=== PATIENT | female | born 1990 | race Caucasian/White ===

== ENCOUNTER 2017-08-15 06:03 | Day surgery (SDC) | payer BC ==
[~2017-08-15 06:03] MED LIST: CEFAZOLIN 2 GM/50 ML (PMX) 50 ML IVPB; LACTATED RINGER'S 1,000 ML IV*
[2017-08-15] MEDS ORDERED: NALOXONE (0.4 MG/ML) INJ IV (06:30)
[2017-08-15] MEDS ORDERED: LIDOCAINE 2% (SDV) 5 ML INJ (06:53)
[2017-08-15] MEDS ORDERED: GLYCOPYRROLATE 1 MG INJ (06:53)
[2017-08-15] MEDS ORDERED: MIDAZOLAM 1 MG/ML 2 ML INJ ×2 (06:53→09:18)
[2017-08-15] MEDS ORDERED: FENTAnyl 50 MCG/ML VIAL (06:53)
[2017-08-15] MEDS ORDERED: NEOSTIGMINE 3 MG/3 ML SYRINGE (06:53)
[2017-08-15] MEDS ORDERED: PROPOFOL 20 ML (06:53)
[2017-08-15] MEDS ORDERED: DEXAMETHASONE 4 MG/ML 1 ML INJ (06:53)
[2017-08-15] MEDS ORDERED: ROCURONIUM 50 MG INJ (06:53)
[2017-08-15] MEDS ORDERED: ONDANSETRON 4 MG INJ ×2 (06:54→09:17)
[2017-08-15] MEDS ORDERED: CEFAZOLIN 1 GM INJ (07:00)
[2017-08-15] MEDS: POLYMYXIN/BACITRACIN 1L IRRIG (08:39)
[2017-08-15] MEDS ORDERED: MEPERIDINE 25 MG INJ (09:29)
[2017-08-15] MEDS ORDERED: KETOROLAC 30 MG INJ (09:29)
[2017-08-15] MEDS ORDERED: ALBUTEROL 0.083% (NEB) 2.5 MG/3 ML AMP HHN (09:30)
[2017-08-15] MEDS ORDERED: DIPHENHYDRAMINE 50 MG INJ IV (09:30)
[2017-08-15] MEDS ORDERED: hydrALAzine 20 MG INJ IV (09:30)
[2017-08-15] MEDS ORDERED: OXYCODONE/ACETAMINOPHEN (5/325) TAB PO (09:30)
[2017-08-15] MEDS ORDERED: HYDROmorphONE 1 MG/5 ML IV SYRINGE IV ×3 (09:30)
[2017-08-15] MEDS ORDERED: METOCLOPRAMIDE 10 MG INJ IV (09:30)
[2017-08-15] MEDS ORDERED: FENTAnyl 50 MCG/ML VIAL IV ×2 (09:30)
[2017-08-15] MEDS: MIDAZOLAM 1 MG/ML 2 ML INJ IV (09:41)
[2017-08-15] MEDS: ONDANSETRON 4 MG INJ IV (09:41)
[2017-08-15] MEDS: KETOROLAC 30 MG INJ IV (09:42)
[2017-08-15] MEDS: MEPERIDINE 25 MG INJ IV (09:42)
== END 2017-08-15 11:00 | disposition home or self-care (01) ==
LOC: SDS 06:03
DX: N92.1 Excessive and frequent menstruation with irregular cycle (principal); D25.9 Leiomyoma of uterus, unspecified; E66.9 Obesity, unspecified; Z68.39 Body mass index [BMI] 39.0-39.9, adult
CPT/HCPCS: 58558; 84703; 88305